=== PATIENT | female | born 1950 | race Caucasian/White ===

== ENCOUNTER 2020-02-03 17:15 | Emergency (ER) | payer OTHER ==
[~2020-02-03] VITALS: Wt 63.5 kg
[~2020-02-03 17:15] MED LIST: ASPIRIN ADULT L81 M2 PO; ATORVASTATIN CA20 M1 PO; CALCIUM 600+D1 EACH PO; DOXYCYCLINE100 M3 PO; LOPRESSOR25 MG PO; LYRICA150 M1 PO; NORCO 7.5-3251 EACH PO; OXYBUTYNIN5 MG PO; PAXIL20 M1 PO; PROTONIX40 MG PO; TAMIFLU 75MG CA75 MG PO; VITAMIN D-32000 UNI1 PO; XARE20MG PO
[2020-02-03 18:23] LABS: BASO % 0.6 % (0.0-1.0); EOS # 0.6 10*3/uL (0.0-0.4); EOS % 9.6 % (1.0-4.0); HEMATOCRIT 40.1 % (37.0-47.0); HEMOGLOBIN 12.9 g/dl (12.0-16.0); LYMPH # 1.5 10*3/uL (1.3-4.4); LYMPH % 22.1 % (27.0-41.0); MEAN CELL VOLUME 95.2 fl (81.0-99.0); MEAN CORPUSCULAR HGB 30.6 pg (27.0-31.0); MEAN CORPUSCULAR HGB CONC 32.2 g/dl (33.0-37.0); MEAN PLATELET VOLUME 9.2 fl (9.6-12.3); MONO # 0.5 10*3/uL (0.1-1.0); MONO % 7.5 % (3.0-9.0); PLATELET COUNT AUTOMATED 244 10*3/uL (130-400); RED BLOOD COUNT 4.21 10*6/uL (4.10-5.10); RED CELL DISTRI WIDTH 13.2 % (0-14.5); WHITE BLOOD COUNT 6.6 10*3/uL (4.8-10.8)
[2020-02-03 18:37] LABS: ALBUMIN 3.3 gm/dl (3.1-4.5); ALKALINE PHOSPHATASE 88 U/L (45-117); BUN 11 mg/dl (7-24); CHLORIDE 98 mmol/L (98-107); POTASSIUM 4.1 mmol/L (3.5-5.1); SGOT/AST 19 IU/L (3-35); SGPT/ALT 15 U/L (12-78); SODIUM 132 mmol/L (136-145); TOTAL PROTEIN 7.3 gm/dL (6.4-8.2)
[2020-02-03] MEDS ORDERED: VIBRAMYCIN100 MG PO (19:46)
== END 2020-02-03 19:26 | disposition home or self-care (01) ==
LOC: ED 17:15
PROVIDERS: Physician Assistant
DX: J98.9 Respiratory disorder, unspecified (principal); Z88.8 Allergy status to other drugs, medicaments and biological substances; Z88.5 Allergy status to narcotic agent; Z79.899 Other long term (current) drug therapy

== ENCOUNTER → 2023-12-03 | Outpatient (CLI) | payer OTHER ==
[~2023-12-03] MED LIST changes: +VIBRAMYCIN100 MG PO
[2023-12-03 13:15] LABS: POTASSIUM 4.2 mmol/L (3.4-5.1)
== END | disposition home or self-care (01) ==
LOC: LAB 12:27
PROVIDERS: ATTEND Physician Assistant Medical
DX: M47.817 Spondylosis without myelopathy or radiculopathy, lumbosacral region (principal); M51.87 Other intervertebral disc disorders, lumbosacral region; M41.86 Other forms of scoliosis, lumbar region; M48.07 Spinal stenosis, lumbosacral region

== ENCOUNTER 2024-01-24 20:24 | Emergency (ER) | payer OTHER ==
[~2024-01-24] VITALS: Ht 160 cm; Wt 59.0 kg
[2024-01-24] MEDS ORDERED: ACETAMINOPHEN 325 MG TAB PO ONE (21:30)
[2024-01-25] MEDS ORDERED: DESMOPRESSIN0.2 MG PO (01:42)
[2024-01-25] MEDS ORDERED: NAPROXEN500 MG PO (01:44)
[2024-01-25] MEDS ORDERED: CYCLOBENZAPRINE10 MG PO (01:45)
[2024-01-25] MEDS ORDERED: GENTEAL TEARS3.5 GM OP (02:32)
[2024-01-25] MEDS ORDERED: SELENIUM SULFI T (02:34)
[2024-01-25] MEDS ORDERED: LIDODERM1 EACH T (02:36)
[2024-01-25] MEDS ORDERED: CALCIUM CARBON600 M5 PO (02:37)
[2024-01-25] MEDS ORDERED: DONEPEZIL HYDROC5 MG PO (02:38)
[2024-01-25] MEDS ORDERED: HYDROCHLOROTH12.5 M2 PO (02:38)
[2024-01-25] MEDS ORDERED: ACETAMINOPHEN500 M4 PO (02:39)
[2024-01-25] MEDS ORDERED: FISH OIL EC 1,1 EACH PO (02:39)
[2024-01-25] MEDS ORDERED: OXYBUTYNIN10 MG PO (04:38)
[2024-01-25] MEDS ORDERED: PAROXETINE HCL30 MG PO (04:39)
== END 2024-01-24 21:37 | disposition home or self-care (01) ==
LOC: ED 20:24
DX: S00.93XA Contusion of unspecified part of head, initial encounter (principal); S00.01XA Abrasion of scalp, initial encounter; M54.50 Low back pain, unspecified; M54.2 Cervicalgia; Z88.5 Allergy status to narcotic agent; Z88.8 Allergy status to other drugs, medicaments and biological substances; Z90.710 Acquired absence of both cervix and uterus; Z98.890 Other specified postprocedural states; W10.9XXA Fall (on) (from) unspecified stairs and steps, initial encounter; Y93.89 Activity, other specified; Y92.009 Unspecified place in unspecified non-institutional (private) residence as the place of occurrence of the external cause; Y99.8 Other external cause status

== ENCOUNTER 2024-01-24 22:23 | Inpatient (IN) | payer OTHER ==
[~2024-01-24] VITALS: Ht 165.1 cm; Wt 58.2 kg
[2024-01-24 22:32] VITALS: BP 142/74
[2024-01-24 23:06] LABS: BASO % 0.3 % (0.0-1.0); EOS # 0.2 10*3/uL (0.0-0.4); LYMPH # 1.3 10*3/uL (1.3-4.4); LYMPH % 11.3 % (27.0-41.0); MEAN CELL VOLUME 86.1 fl (81.0-99.0); MEAN CORPUSCULAR HGB 25.8 pg (27.0-31.0); MONO # 0.5 10*3/uL (0.1-1.0); MONO % 4.4 % (3.0-9.0); NEUT % 81.5 % (47.0-73.0); PLATELET COUNT AUTOMATED 219 10*3/uL (130-400); RED BLOOD COUNT 3.02 10*6/uL (4.10-5.10); RED CELL DISTRI WIDTH 14.6 % (0-14.5)
[2024-01-24 23:26] LABS: POTASSIUM 3.5 mmol/L (3.4-5.1)
[2024-01-24] MEDS ORDERED: SODIUM CHLORIDE 0.9% 1,000 ML IV ONE (23:35)
[2024-01-25] VITALS (14 sets, daily range): BP systolic 115–143; BP diastolic 35–68
[2024-01-25 01:16] LABS: BILIRUBIN Negative (Negative); BLOOD 1+ (Negative); CLARITY Cloudy (Clear); COLOR Yellow (Yellow); GLUCOSE Negative (Negative); KETONE Negative (Negative); LEUKO ESTERASE 2+ (Negative); NITRITE Positive (Negative)
[2024-01-25] MEDS ORDERED: DESMOPRESSIN0.2 MG PO (01:42)
[2024-01-25] MEDS ORDERED: NAPROXEN500 MG PO (01:44)
[2024-01-25] MEDS ORDERED: CYCLOBENZAPRINE10 MG PO (01:45)
[2024-01-25 01:56] LABS: BACTERIA 4+; WBC TNTC wbc/hpf (0-5)
[2024-01-25] MEDS ORDERED: SODIUM CHLORIDE 0.9% 1,000 ML IV ONE (02:20)
[2024-01-25] MEDS ORDERED: Ceftriaxone Sodium 1 GM/10 ML SYR IV ONE (02:20)
[2024-01-25] MEDS ORDERED: GENTEAL TEARS3.5 GM OP (02:32)
[2024-01-25] MEDS ORDERED: SELENIUM SULFI T (02:34)
[2024-01-25] MEDS ORDERED: ACETAMINOPHEN 650 MG SUPP R PRN (02:35)
[2024-01-25] MEDS ORDERED: Ondansetron Hydrochloride 4 MG/2 ML VIAL IV PRN (02:35)
[2024-01-25] MEDS ORDERED: ACETAMINOPHEN 325 MG TAB PO PRN (02:35)
[2024-01-25] MEDS ORDERED: LIDODERM1 EACH T (02:36)
[2024-01-25] MEDS ORDERED: CALCIUM CARBON600 M5 PO (02:37)
[2024-01-25] MEDS ORDERED: DONEPEZIL HYDROC5 MG PO (02:38)
[2024-01-25] MEDS ORDERED: HYDROCHLOROTH12.5 M2 PO (02:38)
[2024-01-25] MEDS ORDERED: ACETAMINOPHEN500 M4 PO (02:39)
[2024-01-25] MEDS ORDERED: FISH OIL EC 1,1 EACH PO (02:39)
[2024-01-25] MEDS ORDERED: MAGNESIUM SULFATE 50 ML IV ONE (02:40)
[2024-01-25] MEDS ORDERED: Acetaminophen/Hydrocodone 5 MG/325 MG TABLET PO PRN (03:10)
[2024-01-25] MEDS ORDERED: OXYBUTYNIN10 MG PO (04:38)
[2024-01-25] MEDS ORDERED: PAROXETINE HCL30 MG PO (04:39)
[2024-01-25 06:09] LABS: MEAN CELL VOLUME 84.4 fl (81.0-99.0); MEAN CORPUSCULAR HGB 26.2 pg (27.0-31.0); MEAN PLATELET VOLUME 9.5 fl (9.6-12.3); PLATELET COUNT AUTOMATED 176 10*3/uL (130-400); RED BLOOD COUNT 2.37 10*6/uL (4.10-5.10); RED CELL DISTRI WIDTH 14.5 % (0-14.5)
[2024-01-25 06:17] LABS: ALKALINE PHOSPHATASE 56 U/L (46-116); BUN 19 mg/dl (9-23); CHLORIDE 93 mmol/L (98-107); CHOLESTEROL 89 mg/dL (<200); LDL CHOLESTEROL 35 mg/dL (9-159); SGPT/ALT 12 U/L (5-49); TOTAL PROTEIN 4.5 gm/dL (6.0-8.0); TRIGLYCERIDES 61 mg/dl (<150)
[2024-01-25] MEDS ORDERED: CHAIR CUSHION DEVICE ONE ×2 (06:21→17:30)
[2024-01-25 06:40] LABS: MANUAL DIFF REFLEX YES
[2024-01-25 07:30] LABS: BASOPHILS 1 % (0-1); TOTAL CELLS COUNTED 100 #CELLS
[2024-01-25 07:31] LABS: PLATELET SUFFICIENCY NORMAL (NORMAL)
[2024-01-25 07:33] LABS: MICROCYTOSIS SLIGHT
[2024-01-25] MEDS ORDERED: SODIUM CHLORIDE 0.9% 500 ML IV ONE (08:29)
[2024-01-25] MEDS ORDERED: Cyclobenzaprine Hydrochlorid 10 MG TAB PO SCH (10:00)
[2024-01-25] MEDS ORDERED: LIDOCAINE 1 EA PATCH T SCH (10:00)
[2024-01-25] MEDS ORDERED: Pantoprazole Sodium 40 MG TAB PO SCH (10:00)
[2024-01-25] MEDS ORDERED: Oxybutynin Chloride 5 MG TAB PO SCH (10:00)
[2024-01-25 14:53] LABS: BASO % 0.2 % (0.0-1.0); EOS # 0.3 10*3/uL (0.0-0.4); EOS % 4.3 % (1.0-4.0); HEMATOCRIT 23.8 % (37.0-47.0); LYMPH # 1.5 10*3/uL (1.3-4.4); LYMPH % 24.5 % (27.0-41.0); MEAN CELL VOLUME 87.2 fl (81.0-99.0); MEAN CORPUSCULAR HGB 26.7 pg (27.0-31.0); MEAN CORPUSCULAR HGB CONC 30.7 g/dl (33.0-37.0); MEAN PLATELET VOLUME 8.8 fl (9.6-12.3); MONO # 0.6 10*3/uL (0.1-1.0); MONO % 10.3 % (3.0-9.0); NEUT # 3.8 10*3/uL (2.3-7.9); NEUT % 60.2 % (47.0-73.0); PLATELET COUNT AUTOMATED 147 10*3/uL (130-400); RED BLOOD COUNT 2.73 10*6/uL (4.10-5.10); WHITE BLOOD COUNT 6.2 10*3/uL (4.8-10.8)
[2024-01-25] MEDS ORDERED: HEEL PROTECTOR DEVICE ONE (17:30)
[2024-01-25] MEDS ORDERED: MUPIROCIN 15 GM TUBE T SCH (18:00)
[2024-01-25] MEDS ORDERED: RIVAROXABAN 20 MG TAB PO SCH (18:00)
[2024-01-25] MEDS ORDERED: FOAM BANDAGE 4X4 T ONE (18:12)
[2024-01-25] MEDS ORDERED: Melatonin 5 MG TABLET PO PRN (21:00)
[2024-01-25] MEDS ORDERED: Ceftriaxone Sodium 1 GM in SYRINGE INFUSION 10 ML IV SCH (21:00)
[2024-01-25] MEDS ORDERED: ATORVASTATIN CALCIUM 20 MG TAB PO SCH (22:00)
[2024-01-25] MEDS ORDERED: Donepezil Hydrochloride 5 MG TAB PO SCH (22:00)
[2024-01-26] VITALS: BP 116/45
[2024-01-26 06:37] LABS: BASO % 0.7 % (0.0-1.0); EOS # 0.7 10*3/uL (0.0-0.4); EOS % 11.9 % (1.0-4.0); HEMATOCRIT 24.5 % (37.0-47.0); LYMPH # 1.3 10*3/uL (1.3-4.4); LYMPH % 23.7 % (27.0-41.0); MEAN CELL VOLUME 86.9 fl (81.0-99.0); MONO # 0.4 10*3/uL (0.1-1.0); MONO % 7.9 % (3.0-9.0); NEUT % 55.4 % (47.0-73.0); PLATELET COUNT AUTOMATED 165 10*3/uL (130-400); RED BLOOD COUNT 2.82 10*6/uL (4.10-5.10); RED CELL DISTRI WIDTH 14.8 % (0-14.5); WHITE BLOOD COUNT 5.4 10*3/uL (4.8-10.8)
[2024-01-26 07:17] LABS: BUN 11 mg/dl (9-23); CHLORIDE 99 mmol/L (98-107); POTASSIUM 3.4 mmol/L (3.4-5.1)
[2024-01-26 08:00] VITALS: BP 111/53
[2024-01-26 12:00] VITALS: BP 114/51
[2024-01-26 16:00] VITALS: BP 108/46
[2024-01-26] MEDS ORDERED: SUCRALFATE 1 GM TAB PO SCH (16:30)
[2024-01-26 20:00] VITALS: BP 127/41
[2024-01-27] VITALS: BP 110/53
[2024-01-27 06:54] LABS: BASO % 0.6 % (0.0-1.0); EOS # 0.8 10*3/uL (0.0-0.4); EOS % 12.7 % (1.0-4.0); HEMATOCRIT 23.7 % (37.0-47.0); LYMPH # 2.4 10*3/uL (1.3-4.4); LYMPH % 37.7 % (27.0-41.0); MEAN CELL VOLUME 88.8 fl (81.0-99.0); MEAN CORPUSCULAR HGB CONC 30.4 g/dl (33.0-37.0); MEAN PLATELET VOLUME 9.2 fl (9.6-12.3); MONO # 0.5 10*3/uL (0.1-1.0); MONO % 7.2 % (3.0-9.0); NEUT # 2.6 10*3/uL (2.3-7.9); NEUT % 41.5 % (47.0-73.0); PLATELET COUNT AUTOMATED 174 10*3/uL (130-400); RED BLOOD COUNT 2.67 10*6/uL (4.10-5.10); RED CELL DISTRI WIDTH 15.2 % (0-14.5); WHITE BLOOD COUNT 6.4 10*3/uL (4.8-10.8)
[2024-01-27 07:40] LABS: BUN 9 mg/dl (9-23); CHLORIDE 102 mmol/L (98-107); POTASSIUM 3.7 mmol/L (3.4-5.1)
[2024-01-27 08:00] VITALS: BP 145/53
[2024-01-27] MEDS ORDERED: NA FERRIC GLUC CMPL/SUCROSE 62.5 MG/5 ML VIAL IV ONE (08:00)
[2024-01-27 12:00] VITALS: BP 117/48
[2024-01-27 16:00] VITALS: BP 120/72
[2024-01-27 20:00] VITALS: BP 117/45
[2024-01-28 00:35] VITALS: BP 134/64
[2024-01-28 08:00] VITALS: BP 118/42
[2024-01-28 12:00] VITALS: BP 134/48
[2024-01-28 12:42] LABS: BASO % 0.5 % (0.0-1.0); EOS # 0.4 10*3/uL (0.0-0.4); EOS % 7.4 % (1.0-4.0); HEMATOCRIT 24.1 % (37.0-47.0); LYMPH # 1.4 10*3/uL (1.3-4.4); LYMPH % 23.2 % (27.0-41.0); MEAN CORPUSCULAR HGB 26.9 pg (27.0-31.0); MEAN PLATELET VOLUME 8.5 fl (9.6-12.3); MONO # 0.4 10*3/uL (0.1-1.0); MONO % 6.1 % (3.0-9.0); NEUT # 3.7 10*3/uL (2.3-7.9); NEUT % 62.3 % (47.0-73.0); NUCLEATED RED BLOOD CELL 0.7 % (0.0-0.0); PLATELET COUNT AUTOMATED 188 10*3/uL (130-400); RED CELL DISTRI WIDTH 15.3 % (0-14.5); WHITE BLOOD COUNT 5.9 10*3/uL (4.8-10.8)
[2024-01-28 13:09] LABS: MEAN CELL VOLUME 92.7 fl (81.0-99.0)
[2024-01-28 16:00] VITALS: BP 117/71
[2024-01-28 20:00] VITALS: BP 141/61
[2024-01-29] VITALS: BP 124/50
[2024-01-29 06:29] LABS: BASO % 0.6 % (0.0-1.0); EOS # 0.7 10*3/uL (0.0-0.4); EOS % 11.2 % (1.0-4.0); HEMATOCRIT 24.3 % (37.0-47.0); LYMPH # 2.1 10*3/uL (1.3-4.4); LYMPH % 31.7 % (27.0-41.0); MEAN CELL VOLUME 92.4 fl (81.0-99.0); MEAN CORPUSCULAR HGB CONC 29.2 g/dl (33.0-37.0); MEAN PLATELET VOLUME 8.8 fl (9.6-12.3); MONO # 0.5 10*3/uL (0.1-1.0); MONO % 6.9 % (3.0-9.0); NEUT # 3.2 10*3/uL (2.3-7.9); NEUT % 48.8 % (47.0-73.0); NUCLEATED RED BLOOD CELL 0.5 % (0.0-0.0); PLATELET COUNT AUTOMATED 220 10*3/uL (130-400); RED BLOOD COUNT 2.63 10*6/uL (4.10-5.10); RED CELL DISTRI WIDTH 15.7 % (0-14.5); WHITE BLOOD COUNT 6.5 10*3/uL (4.8-10.8)
[2024-01-29 06:53] LABS: BUN 9 mg/dl (9-23); CHLORIDE 102 mmol/L (98-107); POTASSIUM 4.4 mmol/L (3.4-5.1)
[2024-01-29 08:00] VITALS: BP 120/60
[2024-01-29] MEDS ORDERED: NA FERRIC GLUC CMPL/SUCROSE 62.5 MG/5 ML VIAL IV SCH (11:10)
[2024-01-29 12:00] VITALS: BP 142/58
[2024-01-29] MEDS ORDERED: MELATONIN5 M7 PO (12:49)
[2024-01-29] MEDS ORDERED: IRON325 M1 PO (12:49)
[2024-01-29] MEDS ORDERED: OMNICEF300 MG PO (12:49)
[2024-01-29] MEDS ORDERED: HYDROCODONE-AC1 EAC1 PO (12:49)
[2024-01-29 16:00] VITALS: BP 130/51
[2024-01-29 20:00] VITALS: BP 127/52
[2024-01-30] VITALS: BP 136/52
[2024-01-30 08:00] VITALS: BP 153/59
[2024-01-30 12:00] VITALS: BP 158/58
== END 2024-01-30 15:48 | DRG 469 ==
LOC: ED 22:23 → EDHOLD 01-25 02:24 → 4E 01-25 02:24
PROVIDERS: Internal Medicine; Registered Nurse; ADMIT Student in an Organized Health Care Education/Training Program; ATTEND Student in an Organized Health Care Education/Training Program
PROC: 30233N1 Transfusion of Nonautologous Red Blood Cells into Peripheral Vein, Percutaneous Approach (ICD-10-PCS; principal; 2024-01-25)
PROC: 0HBRXZZ Excision of Toe Nail, External Approach (ICD-10-PCS; 2024-01-25)
PROC: 0HBRXZZ Excision of Toe Nail, External Approach (ICD-10-PCS; 2024-01-25)
PROC: 0HBRXZZ Excision of Toe Nail, External Approach (ICD-10-PCS; 2024-01-25)
PROC: 0HBRXZZ Excision of Toe Nail, External Approach (ICD-10-PCS; 2024-01-25)
PROC: 0HBRXZZ Excision of Toe Nail, External Approach (ICD-10-PCS; 2024-01-25)
PROC: 0HBRXZZ Excision of Toe Nail, External Approach (ICD-10-PCS; 2024-01-25)
PROC: 0HBRXZZ Excision of Toe Nail, External Approach (ICD-10-PCS; 2024-01-25)
PROC: 0HBRXZZ Excision of Toe Nail, External Approach (ICD-10-PCS; 2024-01-25)
PROC: 0HBRXZZ Excision of Toe Nail, External Approach (ICD-10-PCS; 2024-01-25)
PROC: 0HBRXZZ Excision of Toe Nail, External Approach (ICD-10-PCS; 2024-01-25)
DX: N17.9 Acute kidney failure, unspecified (principal); E87.1 Hypo-osmolality and hyponatremia; N39.0 Urinary tract infection, site not specified; N18.9 Chronic kidney disease, unspecified; S00.01XA Abrasion of scalp, initial encounter; W18.39XA Other fall on same level, initial encounter; G89.29 Other chronic pain; K21.9 Gastro-esophageal reflux disease without esophagitis; G62.9 Polyneuropathy, unspecified; S00.03XA Contusion of scalp, initial encounter; M54.50 Low back pain, unspecified; E87.8 Other disorders of electrolyte and fluid balance, not elsewhere classified; E78.2 Mixed hyperlipidemia; B96.20 Unspecified Escherichia coli [E. coli] as the cause of diseases classified elsewhere; I12.9 Hypertensive chronic kidney disease with stage 1 through stage 4 chronic kidney disease, or unspecified chronic kidney disease; N20.0 Calculus of kidney; D50.9 Iron deficiency anemia, unspecified; S51.012A Laceration without foreign body of left elbow, initial encounter; Z88.6 Allergy status to analgesic agent; Z88.1 Allergy status to other antibiotic agents; Y93.89 Activity, other specified; Y92.89 Other specified places as the place of occurrence of the external cause; Y99.8 Other external cause status; Z86.718 Personal history of other venous thrombosis and embolism; Z86.711 Personal history of pulmonary embolism; Z90.710 Acquired absence of both cervix and uterus; Z80.1 Family history of malignant neoplasm of trachea, bronchus and lung; Z82.49 Family history of ischemic heart disease and other diseases of the circulatory system

== ENCOUNTER 2024-02-06 17:43 | Emergency (ER) | payer OTHER ==
[~2024-02-06] VITALS: Ht 165.1 cm; Wt 55.8 kg
[~2024-02-06 17:43] MED LIST changes: +ACETAMINOPHEN500 M4 PO; +CALCIUM CARBON600 M5 PO; +CYCLOBENZAPRINE10 MG PO; +DESMOPRESSIN0.2 MG PO; +DONEPEZIL HYDROC5 MG PO; +FISH OIL EC 1,1 EACH PO; +GENTEAL TEARS3.5 GM OP; +HYDROCHLOROTH12.5 M2 PO; +HYDROCODONE-AC1 EAC1 PO; +IRON325 M1 PO; +LIDODERM1 EACH T; +MELATONIN5 M7 PO; +NAPROXEN500 MG PO; +OMNICEF300 MG PO; +OXYBUTYNIN10 MG PO; +PAROXETINE HCL30 MG PO; +SELENIUM SULFI T
[2024-02-06 18:54] LABS: BASO % 0.5 % (0.0-1.0); EOS # 0.4 10*3/uL (0.0-0.4); EOS % 4.9 % (1.0-4.0); LYMPH % 27.8 % (27.0-41.0); MEAN CELL VOLUME 93.8 fl (81.0-99.0); MEAN CORPUSCULAR HGB 28.4 pg (27.0-31.0); MEAN CORPUSCULAR HGB CONC 30.3 g/dl (33.0-37.0); MEAN PLATELET VOLUME 8.9 fl (9.6-12.3); MONO # 0.5 10*3/uL (0.1-1.0); MONO % 7.1 % (3.0-9.0); NEUT # 4.4 10*3/uL (2.3-7.9); NEUT % 59.3 % (47.0-73.0); PLATELET COUNT AUTOMATED 300 10*3/uL (130-400); RED BLOOD COUNT 3.41 10*6/uL (4.10-5.10); RED CELL DISTRI WIDTH 21.1 % (0-14.5); WHITE BLOOD COUNT 7.3 10*3/uL (4.8-10.8)
[2024-02-06 19:15] LABS: BUN 14 mg/dl (9-23); CHLORIDE 100 mmol/L (98-107); POTASSIUM 3.7 mmol/L (3.4-5.1)
[2024-02-06 19:53] LABS: BILIRUBIN Negative (Negative); BLOOD Negative (Negative); CLARITY Cloudy (Clear); COLOR Yellow (Yellow); GLUCOSE Negative (Negative); KETONE Negative (Negative); LEUKO ESTERASE Negative (Negative); NITRITE Negative (Negative); PH 7.5 (4.5-8.0)
[2024-02-06 20:04] LABS: BACTERIA 1+
[2024-02-06] MEDS ORDERED: LORazepam 1 MG TAB PO ONE ×2 (21:05)
== END 2024-02-06 21:26 | disposition home or self-care (01) ==
LOC: ED 17:43
PROVIDERS: Internal Medicine
DX: G47.00 Insomnia, unspecified (principal); F41.9 Anxiety disorder, unspecified; E87.1 Hypo-osmolality and hyponatremia; D64.9 Anemia, unspecified; I10 Essential (primary) hypertension; M19.90 Unspecified osteoarthritis, unspecified site; Z86.718 Personal history of other venous thrombosis and embolism; K21.9 Gastro-esophageal reflux disease without esophagitis; Z88.5 Allergy status to narcotic agent; Z88.8 Allergy status to other drugs, medicaments and biological substances; Z90.710 Acquired absence of both cervix and uterus; Z98.890 Other specified postprocedural states

== ENCOUNTER → 2024-04-18 | Outpatient (CLI) | payer OTHER ==
[~2024-04-18] MED LIST changes: +HYDR12.5C PO; +Hydralazine Hyd25 MG PO; +MIRTAZAPINE15 M2 PO
[2024-04-18 13:02] LABS: BUN 10 mg/dl (9-23); CHLORIDE 87 mmol/L (98-107); POTASSIUM 3.8 mmol/L (3.4-5.1)
== END | disposition home or self-care (01) ==
LOC: LAB 12:23
PROVIDERS: ATTEND Family Medicine
DX: E87.1 Hypo-osmolality and hyponatremia (principal)

== ENCOUNTER 2024-04-20 12:38 | Inpatient (IN) | payer OTHER ==
[~2024-04-20] VITALS: Ht 165.1 cm; Wt 55.4 kg
[~2024-04-20 12:38] MED LIST changes: -HYDR12.5C PO; -Hydralazine Hyd25 MG PO; -MIRTAZAPINE15 M2 PO
[2024-04-20 12:45] VITALS: BP 119/87
[2024-04-20 13:18] LABS: BASO # 0.1 10*3/uL (0.0-0.1); BASO % 0.9 % (0.0-1.0); EOS # 0.6 10*3/uL (0.0-0.4); EOS % 8.8 % (1.0-4.0); HEMATOCRIT 37.5 % (37.0-47.0); LYMPH # 1.2 10*3/uL (1.3-4.4); LYMPH % 17.5 % (27.0-41.0); MEAN CELL VOLUME 90.6 fl (81.0-99.0); MEAN CORPUSCULAR HGB 28.7 pg (27.0-31.0); MEAN CORPUSCULAR HGB CONC 31.7 g/dl (33.0-37.0); MEAN PLATELET VOLUME 8.7 fl (9.6-12.3); MONO # 0.4 10*3/uL (0.1-1.0); MONO % 5.8 % (3.0-9.0); NEUT # 4.5 10*3/uL (2.3-7.9); NEUT % 66.9 % (47.0-73.0); PLATELET COUNT AUTOMATED 267 10*3/uL (130-400); RED BLOOD COUNT 4.14 10*6/uL (4.10-5.10); RED CELL DISTRI WIDTH 14.8 % (0-14.5); WHITE BLOOD COUNT 6.7 10*3/uL (4.8-10.8)
[2024-04-20 13:23] LABS: BILIRUBIN Negative (Negative); BLOOD Negative (Negative); CLARITY Cloudy (Clear); COLOR Yellow (Yellow); GLUCOSE Negative (Negative); KETONE Negative (Negative); LEUKO ESTERASE 3+ (Negative); NITRITE Positive (Negative); SPECIFIC GRAVITY 1.015 (1.001-1.030)
[2024-04-20 13:30] LABS: BACTERIA 4+; WBC TNTC wbc/hpf (0-5)
[2024-04-20 13:43] LABS: BUN 11 mg/dl (9-23); CHLORIDE 89 mmol/L (98-107)
[2024-04-20] MEDS ORDERED: MAGNESIUM SULFATE 100 ML IV ONE (13:50)
[2024-04-20] MEDS ORDERED: Ceftriaxone Sodium 1 GM/10 ML SYR IV ONE (13:50)
[2024-04-20] MEDS ORDERED: DESMOPRESSIN0.2 MG PO (14:04)
[2024-04-20] MEDS ORDERED: MIRTAZAPINE15 M2 PO (14:05)
[2024-04-20] MEDS ORDERED: Ondansetron Hydrochloride 4 MG/2 ML VIAL IV PRN (14:50)
[2024-04-20] MEDS ORDERED: BISACODYL 5 MG TAB PO PRN (14:50)
[2024-04-20] MEDS ORDERED: SODIUM CHLORIDE 0.9% 1,000 ML IV ONE ×3 (14:55→23:25)
[2024-04-20] MEDS ORDERED: Hydralazine Hyd25 MG PO (15:46)
[2024-04-20] MEDS ORDERED: HYDR12.5C PO (15:48)
[2024-04-20 16:00] VITALS: BP 120/78
[2024-04-20 16:10] VITALS: BP 129/43
[2024-04-20] MEDS ORDERED: Oxybutynin Chloride 5 MG TAB PO SCH (18:00)
[2024-04-20] MEDS ORDERED: Cyclobenzaprine Hydrochlorid 10 MG TAB PO SCH (18:00)
[2024-04-20 18:06] LABS: BUN 10 mg/dl (9-23); CHLORIDE 87 mmol/L (98-107)
[2024-04-20 20:00] VITALS: BP 131/49
[2024-04-20] MEDS ORDERED: Mirtazapine 15 MG TAB PO SCH (22:00)
[2024-04-20] MEDS ORDERED: Donepezil Hydrochloride 5 MG TAB PO SCH (22:00)
[2024-04-20] MEDS ORDERED: ATORVASTATIN CALCIUM 20 MG TAB PO SCH (22:00)
[2024-04-21] VITALS: BP 128/48
[2024-04-21 06:04] LABS: BASO # 0.1 10*3/uL (0.0-0.1); BASO % 0.8 % (0.0-1.0); EOS # 0.8 10*3/uL (0.0-0.4); EOS % 12.9 % (1.0-4.0); LYMPH # 1.6 10*3/uL (1.3-4.4); LYMPH % 24.7 % (27.0-41.0); MEAN CELL VOLUME 88.9 fl (81.0-99.0); MEAN CORPUSCULAR HGB 28.9 pg (27.0-31.0); MEAN CORPUSCULAR HGB CONC 32.5 g/dl (33.0-37.0); MONO # 0.6 10*3/uL (0.1-1.0); MONO % 9.2 % (3.0-9.0); NEUT # 3.4 10*3/uL (2.3-7.9); NEUT % 52.1 % (47.0-73.0); PLATELET COUNT AUTOMATED 224 10*3/uL (130-400); RED CELL DISTRI WIDTH 14.9 % (0-14.5); WHITE BLOOD COUNT 6.4 10*3/uL (4.8-10.8)
[2024-04-21 06:51] LABS: ALKALINE PHOSPHATASE 86 U/L (46-116); BUN 9 mg/dl (9-23); CHLORIDE 93 mmol/L (98-107); FREE T4 1.14 ng/dl (0.89-1.76); POTASSIUM 4.2 mmol/L (3.4-5.1); SGPT/ALT 7 U/L (5-49); TOTAL PROTEIN 5.3 gm/dL (6.0-8.0)
[2024-04-21 08:00] VITALS: BP 145/63
[2024-04-21] MEDS ORDERED: HYDROCHLOROTHIAZIDE 12.5 MG CAP PO SCH (10:00)
[2024-04-21] MEDS ORDERED: RIVAROXABAN 20 MG TAB PO SCH (10:00)
[2024-04-21] MEDS ORDERED: Pantoprazole Sodium 40 MG TAB PO SCH (10:00)
[2024-04-21 12:00] VITALS: BP 143/56
[2024-04-21] MEDS ORDERED: Ceftriaxone Sodium 1 GM in SYRINGE INFUSION 10 ML IV SCH (15:00)
[2024-04-21 15:16] LABS: BUN 8 mg/dl (9-23); CHLORIDE 98 mmol/L (98-107); POTASSIUM 3.9 mmol/L (3.4-5.1)
[2024-04-21 16:00] VITALS: BP 116/62
[2024-04-21 20:00] VITALS: BP 132/58
[2024-04-22] VITALS: BP 128/56
[2024-04-22 06:43] LABS: BASO # 0.1 10*3/uL (0.0-0.1); BASO % 0.9 % (0.0-1.0); EOS # 0.7 10*3/uL (0.0-0.4); EOS % 10.6 % (1.0-4.0); HEMATOCRIT 34.6 % (37.0-47.0); LYMPH # 1.4 10*3/uL (1.3-4.4); LYMPH % 19.8 % (27.0-41.0); MEAN CELL VOLUME 89.6 fl (81.0-99.0); MEAN CORPUSCULAR HGB 29.3 pg (27.0-31.0); MEAN CORPUSCULAR HGB CONC 32.7 g/dl (33.0-37.0); MEAN PLATELET VOLUME 9.2 fl (9.6-12.3); MONO # 0.6 10*3/uL (0.1-1.0); MONO % 8.5 % (3.0-9.0); NEUT # 4.1 10*3/uL (2.3-7.9); NEUT % 59.9 % (47.0-73.0); PLATELET COUNT AUTOMATED 253 10*3/uL (130-400); RED BLOOD COUNT 3.86 10*6/uL (4.10-5.10); RED CELL DISTRI WIDTH 15.3 % (0-14.5); WHITE BLOOD COUNT 6.9 10*3/uL (4.8-10.8)
[2024-04-22 07:10] LABS: BUN 10 mg/dl (9-23); CHLORIDE 98 mmol/L (98-107); POTASSIUM 4.1 mmol/L (3.4-5.1)
[2024-04-22 08:00] VITALS: BP 138/60
[2024-04-22] MEDS ORDERED: OMNICEF300 MG PO ×2 (11:28→11:34)
[2024-04-22 11:53] VITALS: BP 119/44
== END 2024-04-22 12:53 | disposition home or self-care (01) | DRG 426 ==
LOC: ED 12:38 → EDHOLD 14:21 → 4E 14:21 → EDHOLD 14:55 → 4E 15:02
PROVIDERS: Internal Medicine; Physician Assistant Medical; ADMIT Student in an Organized Health Care Education/Training Program; ATTEND Student in an Organized Health Care Education/Training Program
DX: E87.1 Hypo-osmolality and hyponatremia (principal); E43 Unspecified severe protein-calorie malnutrition; N30.01 Acute cystitis with hematuria; E83.42 Hypomagnesemia; F32.9 Major depressive disorder, single episode, unspecified; I10 Essential (primary) hypertension; G89.29 Other chronic pain; E78.5 Hyperlipidemia, unspecified; K21.9 Gastro-esophageal reflux disease without esophagitis; G62.9 Polyneuropathy, unspecified; D64.9 Anemia, unspecified; E87.8 Other disorders of electrolyte and fluid balance, not elsewhere classified; N39.44 Nocturnal enuresis; B96.20 Unspecified Escherichia coli [E. coli] as the cause of diseases classified elsewhere; Z88.6 Allergy status to analgesic agent; Z88.1 Allergy status to other antibiotic agents; Z90.710 Acquired absence of both cervix and uterus; Z82.49 Family history of ischemic heart disease and other diseases of the circulatory system; Z80.1 Family history of malignant neoplasm of trachea, bronchus and lung; Z86.718 Personal history of other venous thrombosis and embolism; Z86.711 Personal history of pulmonary embolism; Z68.20 Body mass index [BMI] 20.0-20.9, adult

== ENCOUNTER → 2025-02-21 | Outpatient (CLI) | payer OTHER ==
[~2025-02-21] MED LIST changes: +HYDR12.5C PO; +Hydralazine Hyd25 MG PO; +MIRTAZAPINE15 M2 PO
[2025-02-21 13:04] LABS: POTASSIUM 4.3 mmol/L (3.4-5.1)
== END | disposition home or self-care (01) ==
LOC: LAB 12:06
PROVIDERS: ATTEND Physician Assistant Medical
DX: N39.44 Nocturnal enuresis (principal)

== ENCOUNTER 2025-03-11 18:11 | Inpatient (IN) | payer OTHER ==
[~2025-03-11] VITALS: Ht 170.1 cm; Wt 55.8 kg
[2025-03-11 18:34] VITALS: BP 132/56
[2025-03-11 19:21] LABS: BASO % 0.3 % (0.0-1.0); EOS # 0.1 10*3/uL (0.0-0.4); EOS % 1.5 % (1.0-4.0); HEMATOCRIT 38.8 % (37.0-47.0); MEAN CORPUSCULAR HGB 30.2 pg (27.0-31.0); MEAN CORPUSCULAR HGB CONC 33.5 g/dl (33.0-37.0); MEAN PLATELET VOLUME 8.7 fl (9.6-12.3); MONO # 0.5 10*3/uL (0.1-1.0); MONO % 7.8 % (3.0-9.0); NEUT # 4.9 10*3/uL (2.3-7.9); NEUT % 71.4 % (47.0-73.0); PLATELET COUNT AUTOMATED 187 10*3/uL (130-400); RED BLOOD COUNT 4.31 10*6/uL (4.10-5.10); RED CELL DISTRI WIDTH 13.4 % (0-14.5); WHITE BLOOD COUNT 6.9 10*3/uL (4.8-10.8)
[2025-03-11 19:41] LABS: BILIRUBIN Negative (Negative); BLOOD Trace-Lysed (Negative); CLARITY Cloudy (Clear); COLOR Yellow (Yellow); GLUCOSE Negative (Negative); KETONE 1+ (Negative); LEUKO ESTERASE 3+ (Negative); NITRITE Positive (Negative); PH 6.5 (4.5-8.0)
[2025-03-11 19:43] LABS: ALKALINE PHOSPHATASE 86 U/L (46-116); BUN 12 mg/dl (9-23); CHLORIDE 90 mmol/L (98-107); POTASSIUM 3.9 mmol/L (3.4-5.1); SGPT/ALT 13 U/L (5-49); TOTAL PROTEIN 7.2 gm/dL (6.0-8.0)
[2025-03-11 20:12] LABS: BACTERIA 3+; EPITHELIAL CELLS 41-50; RBC 0-2 rbc/hpf (0-2); WBC 51-100 wbc/hpf (0-5)
[2025-03-11] MEDS ORDERED: SODIUM CHLORIDE 0.9% 1,000 ML IV ONE (20:15)
[2025-03-11] MEDS ORDERED: cefTRIAXone Sodium 1 GM/10 ML SYR IV ONE (20:15)
[2025-03-11] MEDS ORDERED: ACETAMINOPHEN 325 MG TAB PO PRN (21:50)
[2025-03-12] VITALS (7 sets, daily range): BP systolic 112–135; BP diastolic 42–64
[2025-03-12 07:01] LABS: BASO % 0.3 % (0.0-1.0); EOS # 0.2 10*3/uL (0.0-0.4); EOS % 3.2 % (1.0-4.0); HEMATOCRIT 39.8 % (37.0-47.0); MEAN CELL VOLUME 92.3 fl (81.0-99.0); MEAN CORPUSCULAR HGB 30.2 pg (27.0-31.0); MEAN CORPUSCULAR HGB CONC 32.7 g/dl (33.0-37.0); MEAN PLATELET VOLUME 8.8 fl (9.6-12.3); MONO # 0.5 10*3/uL (0.1-1.0); MONO % 6.6 % (3.0-9.0); NEUT # 4.6 10*3/uL (2.3-7.9); NEUT % 64.6 % (47.0-73.0); PLATELET COUNT AUTOMATED 199 10*3/uL (130-400); RED BLOOD COUNT 4.31 10*6/uL (4.10-5.10); RED CELL DISTRI WIDTH 13.9 % (0-14.5); WHITE BLOOD COUNT 7.2 10*3/uL (4.8-10.8)
[2025-03-12 07:11] LABS: ACT PARTIAL THROMBO TIME 23.8 SECONDS (20.0-32.1)
[2025-03-12 07:52] LABS: VITAMIN D, 25-HYDROXY 47.8 ng/mL (30-100)
[2025-03-12 08:12] LABS: BUN 9 mg/dl (9-23); CHLORIDE 97 mmol/L (98-107); CHOLESTEROL 167 mg/dL (<200); LDL CHOLESTEROL 81 mg/dL (9-159); POTASSIUM 3.9 mmol/L (3.4-5.1); TRIGLYCERIDES 91 mg/dl (<150)
[2025-03-12 08:28] LABS: FREE T4 1.33 ng/dl (0.89-1.76)
[2025-03-12] MEDS ORDERED: RIVAROXABAN 20 MG TAB PO SCH (10:00)
[2025-03-12] MEDS ORDERED: DESMOPRESSIN A0.1 M1 PO (10:14)
[2025-03-12] MEDS ORDERED: MELOXICAM15 MG PO (10:17)
[2025-03-12] MEDS ORDERED: MUPIROCIN 15 GM TUBE T SCH (14:35)
[2025-03-12] MEDS ORDERED: HEEL PROTECTOR DEVICE ONE (21:06)
[2025-03-12] MEDS ORDERED: CHAIR CUSHION DEVICE ONE (21:06)
[2025-03-12] MEDS ORDERED: cefTRIAXone Sodium 1 GM in SYRINGE INFUSION 10 ML IV SCH (22:00)
[2025-03-12] MEDS ORDERED: Mirtazapine 15 MG TAB PO SCH (22:00)
[2025-03-12] MEDS ORDERED: Donepezil Hydrochloride 5 MG TAB PO SCH (22:00)
[2025-03-12] MEDS ORDERED: Oxybutynin Chloride 5 MG TAB PO SCH (22:00)
[2025-03-12] MEDS ORDERED: ATORVASTATIN CALCIUM 20 MG TAB PO SCH (22:00)
[2025-03-12] MEDS ORDERED: Cyclobenzaprine Hydrochlorid 10 MG TAB PO SCH (22:00)
[2025-03-12] MEDS ORDERED: FOAM BANDAGE 5X5 T ONE (23:19)
[2025-03-13] VITALS: BP 122/51
[2025-03-13] MEDS ORDERED: Pantoprazole Sodium 40 MG TAB PO SCH (06:00)
[2025-03-13 06:26] LABS: BASO % 0.4 % (0.0-1.0); EOS # 0.5 10*3/uL (0.0-0.4); EOS % 6.9 % (1.0-4.0); HEMATOCRIT 37.4 % (37.0-47.0); MEAN CELL VOLUME 94.2 fl (81.0-99.0); MEAN CORPUSCULAR HGB 30.2 pg (27.0-31.0); MEAN CORPUSCULAR HGB CONC 32.1 g/dl (33.0-37.0); MEAN PLATELET VOLUME 9.3 fl (9.6-12.3); MONO # 0.6 10*3/uL (0.1-1.0); MONO % 7.5 % (3.0-9.0); NEUT # 4.5 10*3/uL (2.3-7.9); NEUT % 60.7 % (47.0-73.0); PLATELET COUNT AUTOMATED 194 10*3/uL (130-400); RED BLOOD COUNT 3.97 10*6/uL (4.10-5.10); RED CELL DISTRI WIDTH 14.1 % (0-14.5); WHITE BLOOD COUNT 7.4 10*3/uL (4.8-10.8)
[2025-03-13 06:46] LABS: BUN 10 mg/dl (9-23); CHLORIDE 99 mmol/L (98-107); POTASSIUM 3.7 mmol/L (3.4-5.1)
[2025-03-13 08:00] VITALS: BP 118/53
[2025-03-13] MEDS ORDERED: PARoxetine Hydrochloride 10 MG TAB PO SCH (10:00)
[2025-03-13 12:00] VITALS: BP 130/39
[2025-03-13 16:00] VITALS: BP 131/51
[2025-03-13 19:50] VITALS: BP 132/77
[2025-03-13] MEDS ORDERED: ADENOSINE 6 MG/2 ML VIAL IV ONE ×2 (20:05→20:38)
[2025-03-13 20:15] VITALS: BP 123/75
[2025-03-13] MEDS ORDERED: SODIUM CHLORIDE 0.9% 1,000 ML IV ONE (20:37)
[2025-03-14] VITALS: BP 135/47
[2025-03-14] MEDS ORDERED: ASPIRIN 325 MG ENTERIC COATED PO ONE (01:10)
[2025-03-14] MEDS ORDERED: Enoxaparin Sodium 100 MG/ML SYR SC SCH (01:15)
[2025-03-14] MEDS ORDERED: Metoprolol Tartrate 25 MG TAB PO SCH (01:15)
[2025-03-14 06:55] LABS: BUN 11 mg/dl (9-23); CHLORIDE 103 mmol/L (98-107); POTASSIUM 3.9 mmol/L (3.4-5.1)
[2025-03-14 08:00] VITALS: BP 104/65
[2025-03-14 12:00] VITALS: BP 103/54
[2025-03-14 16:00] VITALS: BP 123/62
[2025-03-14 20:00] VITALS: BP 109/50
[2025-03-15] VITALS: BP 141/44
[2025-03-15 06:03] LABS: BUN 16 mg/dl (9-23); CHLORIDE 100 mmol/L (98-107)
[2025-03-15 06:05] LABS: BASO % 0.4 % (0.0-1.0); EOS # 0.9 10*3/uL (0.0-0.4); EOS % 12.1 % (1.0-4.0); HEMATOCRIT 35.2 % (37.0-47.0); MEAN CELL VOLUME 96.7 fl (81.0-99.0); MEAN CORPUSCULAR HGB 30.8 pg (27.0-31.0); MEAN CORPUSCULAR HGB CONC 31.8 g/dl (33.0-37.0); MEAN PLATELET VOLUME 9.3 fl (9.6-12.3); MONO # 0.5 10*3/uL (0.1-1.0); MONO % 7.5 % (3.0-9.0); NEUT # 3.6 10*3/uL (2.3-7.9); NEUT % 50.4 % (47.0-73.0); PLATELET COUNT AUTOMATED 184 10*3/uL (130-400); RED BLOOD COUNT 3.64 10*6/uL (4.10-5.10); RED CELL DISTRI WIDTH 14.5 % (0-14.5); WHITE BLOOD COUNT 7.1 10*3/uL (4.8-10.8)
[2025-03-15 08:00] VITALS: BP 147/62
[2025-03-15] MEDS ORDERED: LOPRESSOR25 MG PO (10:36)
== END 2025-03-15 13:45 | disposition home health service (06) | DRG 426 ==
LOC: ED 18:11 → EDHOLD 21:15 → 5E 21:15
PROVIDERS: Nurse Practitioner Family; Student in an Organized Health Care Education/Training Program; ADMIT Internal Medicine; ATTEND Internal Medicine
DX: E87.1 Hypo-osmolality and hyponatremia (principal); G93.41 Metabolic encephalopathy; L89.893 Pressure ulcer of other site, stage 3; E44.1 Mild protein-calorie malnutrition; I21.A1 Myocardial infarction type 2; I47.10 Supraventricular tachycardia, unspecified; I10 Essential (primary) hypertension; D50.9 Iron deficiency anemia, unspecified; N39.0 Urinary tract infection, site not specified; E78.5 Hyperlipidemia, unspecified; F32.9 Major depressive disorder, single episode, unspecified; R31.9 Hematuria, unspecified; L97.519 Non-pressure chronic ulcer of other part of right foot with unspecified severity; E87.8 Other disorders of electrolyte and fluid balance, not elsewhere classified; G30.9 Alzheimer's disease, unspecified; F02.84 Dementia in other diseases classified elsewhere, unspecified severity, with anxiety; F02.83 Dementia in other diseases classified elsewhere, unspecified severity, with mood disturbance; B96.20 Unspecified Escherichia coli [E. coli] as the cause of diseases classified elsewhere; G62.9 Polyneuropathy, unspecified; K21.9 Gastro-esophageal reflux disease without esophagitis; Z88.8 Allergy status to other drugs, medicaments and biological substances; Z91.09 Other allergy status, other than to drugs and biological substances; Z79.899 Other long term (current) drug therapy; Z86.718 Personal history of other venous thrombosis and embolism; Z79.01 Long term (current) use of anticoagulants; Z79.2 Long term (current) use of antibiotics; Z86.711 Personal history of pulmonary embolism; Z90.710 Acquired absence of both cervix and uterus; Z82.49 Family history of ischemic heart disease and other diseases of the circulatory system; Z80.1 Family history of malignant neoplasm of trachea, bronchus and lung; Z68.1 Body mass index [BMI] 19.9 or less, adult

== ENCOUNTER → 2025-05-18 | Outpatient (CLI) | payer OTHER ==
[~2025-05-18] MED LIST changes: +DESMOPRESSIN A0.1 M1 PO; +MELOXICAM15 MG PO
== END | disposition home or self-care (01) ==
LOC: RESCLI 15:11
PROVIDERS: ATTEND Internal Medicine
DX: L03.90 Cellulitis, unspecified (principal); Z79.899 Other long term (current) drug therapy; Z88.5 Allergy status to narcotic agent

== ENCOUNTER → 2025-05-23 | Outpatient (CLI) | payer OTHER | END | disposition home or self-care (01) | LOC: WOUNDCARE 09:35 | PROVIDERS: ATTEND Nurse Practitioner Family | DX: L89.513 Pressure ulcer of right ankle, stage 3 (principal); S91.101D Unspecified open wound of right great toe without damage to nail, subsequent encounter; R23.4 Changes in skin texture; I10 Essential (primary) hypertension; G62.9 Polyneuropathy, unspecified; D50.9 Iron deficiency anemia, unspecified; K21.9 Gastro-esophageal reflux disease without esophagitis; E78.5 Hyperlipidemia, unspecified; F03.90 Unspecified dementia, unspecified severity, without behavioral disturbance, psychotic disturbance, mood disturbance, and anxiety; Z86.718 Personal history of other venous thrombosis and embolism; Z90.710 Acquired absence of both cervix and uterus; Z98.890 Other specified postprocedural states; Z79.899 Other long term (current) drug therapy; X58.XXXD Exposure to other specified factors, subsequent encounter ==

== ENCOUNTER → 2025-07-17 | Outpatient (CLI) | payer OTHER | END | disposition home or self-care (01) | LOC: WOUNDCARE 01:59 | PROVIDERS: ATTEND Nurse Practitioner Family | DX: L89.513 Pressure ulcer of right ankle, stage 3 (principal); S91.101D Unspecified open wound of right great toe without damage to nail, subsequent encounter; G62.9 Polyneuropathy, unspecified; D50.9 Iron deficiency anemia, unspecified; K21.9 Gastro-esophageal reflux disease without esophagitis; E78.5 Hyperlipidemia, unspecified; I10 Essential (primary) hypertension; Z90.710 Acquired absence of both cervix and uterus; Z86.718 Personal history of other venous thrombosis and embolism; Z86.711 Personal history of pulmonary embolism; X58.XXXD Exposure to other specified factors, subsequent encounter ==

== ENCOUNTER 2025-08-02 09:22 | Inpatient (IN) | payer OTHER ==
[~2025-08-02] VITALS: Ht 160 cm; Wt 58.8 kg
[~2025-08-02 09:22] MED LIST changes: -Lopressor25 MG PO; -RECTICARE15 GM T; -SELENIUM SULFIDE T; -SILVADENE,SSD C50 GM T
[2025-08-02 09:29] VITALS: BP 139/66
[2025-08-02] MEDS ORDERED: fentaNYL CITRATE/PF 50 MCG/ML SYRINGE IV ONE (09:40)
[2025-08-02] MEDS ORDERED: SODIUM CHLORIDE 0.9% 1,000 ML IV ONE ×3 (09:40→23:55)
[2025-08-02] MEDS ORDERED: Sulfamethoxazole/Trimethopri 1 TAB TAB PO ONE (09:40)
[2025-08-02] MEDS ORDERED: Ondansetron Hydrochloride 4 MG/2 ML VIAL IV ONE (09:40)
[2025-08-02 10:20] LABS: BASO # 0.0 10*3/uL (0.0-0.1); BASO % 0.4 % (0.0-1.0); EOS # 0.2 10*3/uL (0.0-0.4); EOS % 3.1 % (1.0-4.0); MEAN CELL VOLUME 92.8 fl (81.0-99.0); MEAN CORPUSCULAR HGB 30.0 pg (27.0-31.0); MEAN PLATELET VOLUME 8.7 fl (9.6-12.3); MONO # 0.4 10*3/uL (0.1-1.0); MONO % 5.2 % (3.0-9.0); NEUT # 5.1 10*3/uL (2.3-7.9); NEUT % 75.3 % (47.0-73.0); NUCLEATED RED BLOOD CELL 0.0 % (0.0-0.0); NUCLEATED RED BLOOD CELL 0.0 10*3/uL (0.0-0.0); PLATELET COUNT AUTOMATED 203 10*3/uL (130-400); RED CELL DISTRI WIDTH 13.2 % (0-14.5)
[2025-08-02 10:38] LABS: BUN 10 mg/dl (9-23)
[2025-08-02] MEDS ORDERED: DESMOPRESSIN A0.1 M1 PO (11:11)
[2025-08-02] MEDS ORDERED: RECTICARE15 GM T (11:15)
[2025-08-02] MEDS ORDERED: SILVADENE,SSD C50 GM T (11:15)
[2025-08-02] MEDS ORDERED: SELENIUM SULFIDE T (11:20)
[2025-08-02] MEDS ORDERED: TEMAZEPAM 15 MG CAP PO PRN (11:55)
[2025-08-02] MEDS ORDERED: BISACODYL 5 MG TAB PO PRN (11:55)
[2025-08-02] MEDS ORDERED: ACETAMINOPHEN 325 MG TAB PO PRN (11:55)
[2025-08-02] MEDS ORDERED: ACETAMINOPHEN 650 MG SUPP R PRN (11:55)
[2025-08-02] MEDS ORDERED: BISACODYL 10 MG SUPP R PRN (11:55)
[2025-08-02] MEDS ORDERED: Ondansetron Hydrochloride 4 MG/2 ML VIAL IV PRN (11:55)
[2025-08-02] MEDS ORDERED: MUPIROCIN 15 GM TUBE T SCH (12:55)
[2025-08-02 14:00] VITALS: BP 133/69
[2025-08-02 15:04] LABS: BUN 8 mg/dl (9-23)
[2025-08-02] MEDS ORDERED: Cyclobenzaprine Hydrochlorid 10 MG TAB PO SCH (18:00)
[2025-08-02 19:00] VITALS: BP 137/50
[2025-08-02 20:15] VITALS: BP 138/56
[2025-08-02] MEDS ORDERED: ATORVASTATIN CALCIUM 20 MG TAB PO SCH (22:00)
[2025-08-02] MEDS ORDERED: Mirtazapine 15 MG TAB PO SCH (22:00)
[2025-08-02] MEDS ORDERED: Lopressor25 MG PO (22:45)
[2025-08-02 22:59] LABS: BUN 7 mg/dl (9-23)
[2025-08-02] MEDS ORDERED: LIDOCAINE 5% ANORECTAL CREAM T PRN (23:50)
[2025-08-03] VITALS: BP 122/59
[2025-08-03 06:25] LABS: BASO # 0.0 10*3/uL (0.0-0.1); BASO % 0.4 % (0.0-1.0); EOS # 0.5 10*3/uL (0.0-0.4); EOS % 5.6 % (1.0-4.0); MEAN CELL VOLUME 93.7 fl (81.0-99.0); MEAN CORPUSCULAR HGB 30.3 pg (27.0-31.0); MEAN PLATELET VOLUME 9.1 fl (9.6-12.3); MONO # 0.7 10*3/uL (0.1-1.0); MONO % 7.8 % (3.0-9.0); NEUT # 5.3 10*3/uL (2.3-7.9); NEUT % 63.5 % (47.0-73.0); NUCLEATED RED BLOOD CELL 0.0 % (0.0-0.0); NUCLEATED RED BLOOD CELL 0.0 10*3/uL (0.0-0.0); PLATELET COUNT AUTOMATED 197 10*3/uL (130-400); RED CELL DISTRI WIDTH 13.6 % (0-14.5)
[2025-08-03 06:40] LABS: BUN 7 mg/dl (9-23)
[2025-08-03 06:41] LABS: SGPT/ALT < 7 U/L (5-49)
[2025-08-03 08:00] VITALS: BP 135/46
[2025-08-03] MEDS ORDERED: SILVER SULFADIAZINE 25 GM TUBE T SCH (10:00)
[2025-08-03] MEDS ORDERED: Cholecalciferol 2,000 UNIT TABLET (50 MCG) PO SCH (10:00)
[2025-08-03] MEDS ORDERED: RIVAROXABAN 20 MG TAB PO SCH (10:00)
[2025-08-03] MEDS ORDERED: Meloxicam 15 MG TAB PO SCH (10:00)
[2025-08-03 12:00] VITALS: BP 130/52
[2025-08-03 16:00] VITALS: BP 121/49
[2025-08-03 20:00] VITALS: BP 138/50
[2025-08-03] MEDS ORDERED: Polyethylene Glycol 15 ML BOT OPH SCH (22:00)
[2025-08-04] VITALS: BP 150/69
[2025-08-04 06:48] LABS: BUN 9 mg/dl (9-23)
[2025-08-04 08:00] VITALS: BP 142/51
[2025-08-04] MEDS ORDERED: ADHESIVE BANDAGE 1 EACH BANDAGE T ONE (09:53)
[2025-08-04 12:00] VITALS: BP 136/50
== END 2025-08-04 14:26 | disposition home or self-care (01) | DRG 426 ==
LOC: ED 09:22 → EDHOLD 11:24 → 5E 11:24 → EDHOLD 11:25 → 5E 19:43
PROVIDERS: Emergency Medicine; ADMIT Student in an Organized Health Care Education/Training Program; ATTEND Student in an Organized Health Care Education/Training Program
DX: E87.1 Hypo-osmolality and hyponatremia (principal); E44.0 Moderate protein-calorie malnutrition; L89.513 Pressure ulcer of right ankle, stage 3; E87.8 Other disorders of electrolyte and fluid balance, not elsewhere classified; F03.90 Unspecified dementia, unspecified severity, without behavioral disturbance, psychotic disturbance, mood disturbance, and anxiety; G89.29 Other chronic pain; D50.9 Iron deficiency anemia, unspecified; E78.5 Hyperlipidemia, unspecified; Z88.6 Allergy status to analgesic agent; Z88.1 Allergy status to other antibiotic agents; Z90.710 Acquired absence of both cervix and uterus; Z82.49 Family history of ischemic heart disease and other diseases of the circulatory system; Z80.1 Family history of malignant neoplasm of trachea, bronchus and lung; Z86.718 Personal history of other venous thrombosis and embolism; Z86.711 Personal history of pulmonary embolism; Z68.22 Body mass index [BMI] 22.0-22.9, adult

== ENCOUNTER → 2025-08-02 | Outpatient (CLI) | payer OTHER ==
[~2025-08-02] MED LIST changes: +Lopressor25 MG PO; +RECTICARE15 GM T; +SELENIUM SULFIDE T; +SILVADENE,SSD C50 GM T
== END | disposition home or self-care (01) ==
LOC: WOUNDCARE 04:52
PROVIDERS: ATTEND Emergency Medicine
DX: L89.513 Pressure ulcer of right ankle, stage 3 (principal); S91.101D Unspecified open wound of right great toe without damage to nail, subsequent encounter; E78.5 Hyperlipidemia, unspecified; G62.9 Polyneuropathy, unspecified; D50.9 Iron deficiency anemia, unspecified; K21.9 Gastro-esophageal reflux disease without esophagitis; I10 Essential (primary) hypertension; Z86.718 Personal history of other venous thrombosis and embolism; Z90.710 Acquired absence of both cervix and uterus; Z98.890 Other specified postprocedural states; Z79.899 Other long term (current) drug therapy

== ENCOUNTER → 2025-08-16 | Outpatient (CLI) | payer OTHER ==
[~2025-08-16] MED LIST changes: +Lopressor25 MG PO; +RECTICARE15 GM T; +SELENIUM SULFIDE T; +SILVADENE,SSD C50 GM T
== END | disposition home or self-care (01) ==
LOC: WOUNDCARE 00:37
PROVIDERS: ATTEND Nurse Practitioner Family
DX: L89.513 Pressure ulcer of right ankle, stage 3 (principal); S91.101D Unspecified open wound of right great toe without damage to nail, subsequent encounter; D50.9 Iron deficiency anemia, unspecified; I10 Essential (primary) hypertension; G62.9 Polyneuropathy, unspecified; K21.9 Gastro-esophageal reflux disease without esophagitis; E78.00 Pure hypercholesterolemia, unspecified; Z86.718 Personal history of other venous thrombosis and embolism; Z90.710 Acquired absence of both cervix and uterus; Z98.890 Other specified postprocedural states; Z79.899 Other long term (current) drug therapy; X58.XXXD Exposure to other specified factors, subsequent encounter

== ENCOUNTER → 2025-09-24 | Outpatient (CLI) | payer OTHER ==
[2025-09-24 15:49] LABS: BASO # 0.0 10*3/uL (0.0-0.1); BASO % 0.5 % (0.0-1.0); EOS # 0.6 10*3/uL (0.0-0.4); EOS % 10.5 % (1.0-4.0); MEAN CELL VOLUME 101.1 fl (81.0-99.0); MEAN CORPUSCULAR HGB 31.1 pg (27.0-31.0); MEAN PLATELET VOLUME 8.7 fl (9.6-12.3); MONO # 0.4 10*3/uL (0.1-1.0); MONO % 6.6 % (3.0-9.0); NEUT # 3.0 10*3/uL (2.3-7.9); NEUT % 54.0 % (47.0-73.0); NUCLEATED RED BLOOD CELL 0.0 % (0.0-0.0); NUCLEATED RED BLOOD CELL 0.0 10*3/uL (0.0-0.0); PLATELET COUNT AUTOMATED 196 10*3/uL (130-400); RED CELL DISTRI WIDTH 14.1 % (0-14.5)
[2025-09-24 16:16] LABS: BUN 15 mg/dl (9-23)
[2025-09-24 16:17] LABS: SGPT/ALT < 7 U/L (5-49)
== END | disposition home or self-care (01) ==
LOC: LAB 15:32
PROVIDERS: ATTEND Podiatrist
DX: L08.9 Local infection of the skin and subcutaneous tissue, unspecified (principal)

== ENCOUNTER 2025-09-26 16:22 | Emergency (ER) | payer OTHER ==
[~2025-09-26] VITALS: Ht 165.1 cm; Wt 49.9 kg
== END 2025-09-26 19:03 | disposition home or self-care (01) ==
LOC: ED 16:22
DX: I73.00 Raynaud's syndrome without gangrene (principal); M79.601 Pain in right arm; Z88.5 Allergy status to narcotic agent; Z88.1 Allergy status to other antibiotic agents; Z79.899 Other long term (current) drug therapy; Z98.890 Other specified postprocedural states; Z90.710 Acquired absence of both cervix and uterus

== ENCOUNTER 2025-11-02 12:48 | Emergency (ER) | payer OTHER ==
[~2025-11-02] VITALS: Ht 165.1 cm; Wt 57.2 kg
== END 2025-11-02 15:14 | disposition home or self-care (01) ==
LOC: ED 12:48
DX: L97.919 Non-pressure chronic ulcer of unspecified part of right lower leg with unspecified severity (principal); I10 Essential (primary) hypertension; M19.90 Unspecified osteoarthritis, unspecified site; F41.9 Anxiety disorder, unspecified; K21.9 Gastro-esophageal reflux disease without esophagitis; F32.A Depression, unspecified; Z86.718 Personal history of other venous thrombosis and embolism; Z86.711 Personal history of pulmonary embolism